=== PATIENT | female | born 1960 | race Caucasian/White ===

== ENCOUNTER → 2016-07-25 | Outpatient (CLI) | payer BC ==
[~2016-07-25] MED LIST: MULTI FOR HER1 EACH PO; NORCO 325 MG-51 TAB PO
== END ==
LOC: RAD 09:06
DX: R10.9 Unspecified abdominal pain (principal)
CPT/HCPCS: Q9967

== ENCOUNTER → 2016-11-13 | Outpatient (CLI) | payer BC ==
[2015-08-05 16:15] VITALS: BP 136/86
== END ==
LOC: MAMMO 08:15
DX: Z12.31 Encounter for screening mammogram for malignant neoplasm of breast (principal)
CPT/HCPCS: G0202

== ENCOUNTER → 2017-02-16 | Outpatient (CLI) | payer BC ==
[2015-08-05 16:15] VITALS: BP 136/86
== END ==
LOC: LAB 16:52
DX: G62.9 Polyneuropathy, unspecified (principal)

== ENCOUNTER → 2019-02-02 | Outpatient (CLI) | payer BC ==
[2015-08-05 16:15] VITALS: BP 136/86
== END ==
LOC: MAMMO 12:41
DX: Z12.31 Encounter for screening mammogram for malignant neoplasm of breast (principal)

== ENCOUNTER 2019-06-05 18:12 | Emergency (ER) | payer BC ==
[~2019-06-05] VITALS: Ht 175.3 cm; Wt 86.4 kg
[2019-06-05] MEDS ORDERED: ZESTRIL10 M1 PO (18:18)
[2019-06-05] MEDS ORDERED: NORCO 325 MG-51 TA1 PO (19:51)
[2019-06-05 20:15] VITALS: BP 192/78
== END 2019-06-05 20:25 | disposition home or self-care (01) ==
LOC: ED 18:12
DX: S83.92XA Sprain of unspecified site of left knee, initial encounter (principal); I10 Essential (primary) hypertension; F17.210 Nicotine dependence, cigarettes, uncomplicated; W00.0XXA Fall on same level due to ice and snow, initial encounter; X50.1XXA Overexertion from prolonged static or awkward postures, initial encounter; Y92.009 Unspecified place in unspecified non-institutional (private) residence as the place of occurrence of the external cause
CPT/HCPCS: J1885; L1830

== ENCOUNTER → 2019-07-25 | Day surgery (SDC) | payer BC ==
[~2019-07-25] MED LIST changes: +NORCO 325 MG-51 TA1 PO; +ZESTRIL10 M1 PO
== END ==
LOC: MSO 07:05
DX: Z12.11 Encounter for screening for malignant neoplasm of colon (principal); K62.1 Rectal polyp; I10 Essential (primary) hypertension; F17.210 Nicotine dependence, cigarettes, uncomplicated; E11.9 Type 2 diabetes mellitus without complications; Z88.2 Allergy status to sulfonamides
CPT/HCPCS: 00811; J2704; J7030

== ENCOUNTER → 2020-08-27 | Outpatient (CLI) | payer BC ==
[~2020-08-27] MED LIST changes: +ADULT LOW DOSE81 MG PO; +CLOPIDOGREL75 M2 PO; +DOCUSATE SOD100 MG PO
== END ==
LOC: MAMMO 08-23 08:30
DX: Z12.31 Encounter for screening mammogram for malignant neoplasm of breast (principal)

== ENCOUNTER 2020-09-30 17:15 | Emergency (ER) | payer BC ==
[~2020-09-30 17:15] MED LIST changes: -ADULT LOW DOSE81 MG PO; -CLOPIDOGREL75 M2 PO; -DOCUSATE SOD100 MG PO
[2020-09-30] MEDS ORDERED: CLOPIDOGREL75 M2 PO (17:54)
[2020-09-30] MEDS ORDERED: DOCUSATE SOD100 MG PO (17:55)
[2020-09-30] MEDS ORDERED: ADULT LOW DOSE81 MG PO (17:55)
[2020-09-30 18:48] LABS: BASO # 0.08 (0.02-0.10); EOS # 0.48 (0.04-0.40); EOS % 4.6 % (1.0-5.0); HEMATOCRIT 35.8 % (37.0-47.0); HEMOGLOBIN 11.6 g/dL (12.5-16.0); LYMPH# 3.71 (1.50-4.00); MEAN CELL VOLUME 94 fl (78-100); MEAN CORPUSCULAR HEMOGLOBIN 30 pg (27-31); MEAN CORPUSCULAR HGB CONC 32 g/dL (33-37); MEAN PLATELET VOLUME 9.7 fl (7.4-10.4); MONO # 0.78 (0.20-0.80); NEU # 5.23 (1.40-6.50); PLATELET COUNT 197 K/mm3 (130-400); RED BLOOD COUNT 3.83 M/mm3 (4.10-5.30); RED CELL DISTRIBUTION WIDTH 13.7 % (11.5-14.5); WHITE BLOOD COUNT 10.3 K/mm3 (4.8-10.8)
[2020-09-30] MEDS ORDERED: NORCO 325 MG-51 TA1 PO (19:23)
[2020-09-30 19:36] VITALS: BP 151/70
== END 2020-09-30 19:36 | disposition home or self-care (01) ==
LOC: ED 17:15
PROVIDERS: Family Medicine
DX: M25.531 Pain in right wrist (principal); I10 Essential (primary) hypertension; Z87.891 Personal history of nicotine dependence; Z79.02 Long term (current) use of antithrombotics/antiplatelets; Z79.82 Long term (current) use of aspirin

== ENCOUNTER → 2021-07-11 | Outpatient (CLI) | payer BC ==
[~2021-07-11] MED LIST changes: +ADULT LOW DOSE81 MG PO; +CLOPIDOGREL75 M2 PO; +DOCUSATE SOD100 MG PO
== END ==
LOC: RAD 07:53
DX: C64.2 Malignant neoplasm of left kidney, except renal pelvis (principal); Z90.5 Acquired absence of kidney
CPT/HCPCS: Q9967

== ENCOUNTER → 2021-11-18 | Day surgery (SDC) | payer BC | LOC: MSO 06:55 | DX: Z12.11 Encounter for screening for malignant neoplasm of colon (principal); D12.3 Benign neoplasm of transverse colon; D12.4 Benign neoplasm of descending colon; F17.210 Nicotine dependence, cigarettes, uncomplicated | CPT/HCPCS: 00811; J2704; J7120 ==

== ENCOUNTER → 2021-11-28 | Outpatient (CLI) | payer BC | LOC: MAMMO 08:17 | DX: Z12.31 Encounter for screening mammogram for malignant neoplasm of breast (principal) ==

== ENCOUNTER → 2022-02-06 | Outpatient (CLI) | payer BC | LOC: RAD 07:50 | DX: Z85.528 Personal history of other malignant neoplasm of kidney (principal); Z90.5 Acquired absence of kidney ==

== ENCOUNTER 2022-12-29 09:56 | Outpatient (RCR) | payer BC | END 2023-01-22 | disposition home or self-care (01) | LOC: PT | DX: M25.551 Pain in right hip (principal); Z98.890 Other specified postprocedural states ==

== ENCOUNTER → 2023-02-24 | Outpatient (CLI) | payer MEDICARE | LOC: MAMMO 13:37 | DX: Z12.31 Encounter for screening mammogram for malignant neoplasm of breast (principal) ==

== ENCOUNTER → 2023-12-02 | Outpatient (CLI) | payer MEDICARE ==
[~2023-12-02] MED LIST changes: +LOSARTAN POTASS50 M1 PO; +SIMVASTATIN20 M1 PO
== END ==
LOC: RAD 15:30
DX: M16.0 Bilateral primary osteoarthritis of hip (principal)

== ENCOUNTER → 2024-02-26 | Outpatient (CLI) | payer MEDICARE | LOC: RAD 07:53 | DX: C64.2 Malignant neoplasm of left kidney, except renal pelvis (principal) ==

== ENCOUNTER → 2024-06-27 | Outpatient (CLI) | payer MEDICARE | LOC: RAD 16:10 | DX: Z01.811 Encounter for preprocedural respiratory examination (principal); I10 Essential (primary) hypertension ==